=== PATIENT | male | born 1940 | race Caucasian/White ===

== ENCOUNTER → 2018-02-04 | Outpatient (CLI) | payer MEDICARE, OTHER ==
[~2018-02-04] MED LIST: AREDS 2 PO; ASCO500 PO; ASPI325 PO; ASPI325EC; ASPI325EC PO; ASPI500 PO; ATOR40TA PO; CARV6.25 PO; CEPH500 PO; CETI10 PO; CIPR500 PO; CLOP75 PO; CYAN1000 PO; ELIQUIS5 MG PO; FINA5 PO; FISH1000 PO; HYDACE5 PO; LEVSOD100 PO; LEVSOD125 PO; LISI20 PO; NITR.4SL SL; Nitrostat0.4 MG SL; ROSU10TA PO; SPIR25 PO; TAMS.4ER PO; VALS80; VIT1CAPS12; XARELTO20 MG; ZESTORETIC 20-121 EA; ZESTORETIC 20-121 EA PO
== END ==
LOC: PLD 13:26 → LAB SHORT 13:26
DX: D48.5 Neoplasm of uncertain behavior of skin (principal)
CPT/HCPCS: 88305

== ENCOUNTER → 2018-07-23 | Outpatient (CLI) | payer MEDICARE, OTHER ==
[~2018-07-23] MED LIST changes: +LEVSOD50 PO; +VIT1CAPS12 PO; +VITAMIN B122500 MC1 PO; +Vitamin C60 MG PO; +XARELTO20 MG PO
== END | disposition home or self-care (01) ==
LOC: PLD 10:36 → LAB SHORT 10:36
DX: D48.5 Neoplasm of uncertain behavior of skin (principal)
CPT/HCPCS: 88305

== ENCOUNTER → 2021-01-16 | Outpatient (CLI) | payer MEDICARE, OTHER | END | disposition home or self-care (01) | LOC: PLD 11:02 → LAB SHORT 11:02 | DX: D48.5 Neoplasm of uncertain behavior of skin (principal) | CPT/HCPCS: 88305 ==

== ENCOUNTER 2022-10-26 00:23 | Day surgery (SDC) | payer MEDICARE, OTHER | END 2022-10-26 23:31 | disposition home or self-care (01) | LOC: WOUND 00:23 | DX: S61.401A Unspecified open wound of right hand, initial encounter (principal); S51.001A Unspecified open wound of right elbow, initial encounter; S61.402A Unspecified open wound of left hand, initial encounter; S41.102A Unspecified open wound of left upper arm, initial encounter; S12.100A Unspecified displaced fracture of second cervical vertebra, initial encounter for closed fracture; S41.101A Unspecified open wound of right upper arm, initial encounter; R55 Syncope and collapse; I11.0 Hypertensive heart disease with heart failure; I50.9 Heart failure, unspecified; I25.10 Atherosclerotic heart disease of native coronary artery without angina pectoris; I25.2 Old myocardial infarction; Z87.891 Personal history of nicotine dependence | CPT/HCPCS: G0463 ==

== ENCOUNTER 2022-10-29 08:45 | Day surgery (SDC) | payer MEDICARE, OTHER | END 2022-10-29 22:45 | disposition home or self-care (01) | LOC: WOUND 08:45 → ATC 08:45 → WOUND 22:45 | DX: S61.401A Unspecified open wound of right hand, initial encounter (principal); S61.402A Unspecified open wound of left hand, initial encounter; S41.102A Unspecified open wound of left upper arm, initial encounter; S12.100A Unspecified displaced fracture of second cervical vertebra, initial encounter for closed fracture; S41.101A Unspecified open wound of right upper arm, initial encounter; R55 Syncope and collapse | CPT/HCPCS: G0463 ==

== ENCOUNTER 2022-11-05 00:39 | Day surgery (SDC) | payer MEDICARE, OTHER | END 2022-11-05 22:53 | disposition home or self-care (01) | LOC: WOUND 00:39 | DX: S41.102D Unspecified open wound of left upper arm, subsequent encounter (principal); R55 Syncope and collapse; S12.100A Unspecified displaced fracture of second cervical vertebra, initial encounter for closed fracture; S41.101D Unspecified open wound of right upper arm, subsequent encounter; S61.401D Unspecified open wound of right hand, subsequent encounter; S61.402D Unspecified open wound of left hand, subsequent encounter | CPT/HCPCS: G0463 ==

== ENCOUNTER 2022-11-07 04:05 | Day surgery (SDC) | payer MEDICARE, OTHER | END 2022-11-07 23:07 | disposition home or self-care (01) | LOC: WOUND 04:05 | DX: S41.102A Unspecified open wound of left upper arm, initial encounter (principal); S61.402D Unspecified open wound of left hand, subsequent encounter; I10 Essential (primary) hypertension; R55 Syncope and collapse; S12.100A Unspecified displaced fracture of second cervical vertebra, initial encounter for closed fracture; S41.101D Unspecified open wound of right upper arm, subsequent encounter; S61.401D Unspecified open wound of right hand, subsequent encounter | CPT/HCPCS: G0463 ==

== ENCOUNTER 2022-11-09 03:05 | Day surgery (SDC) | payer MEDICARE, OTHER | END 2022-11-09 23:07 | disposition home or self-care (01) | LOC: WOUND 03:05 | DX: S41.102D Unspecified open wound of left upper arm, subsequent encounter (principal); R55 Syncope and collapse; S12.100A Unspecified displaced fracture of second cervical vertebra, initial encounter for closed fracture; S41.101D Unspecified open wound of right upper arm, subsequent encounter; S61.401D Unspecified open wound of right hand, subsequent encounter; S61.402D Unspecified open wound of left hand, subsequent encounter; W10.9XXD Fall (on) (from) unspecified stairs and steps, subsequent encounter | CPT/HCPCS: A9270; G0463 ==

== ENCOUNTER 2022-11-16 02:39 | Day surgery (SDC) | payer MEDICARE, OTHER | END 2022-11-16 23:48 | disposition home or self-care (01) | LOC: WOUND | DX: S41.102A Unspecified open wound of left upper arm, initial encounter (principal); R55 Syncope and collapse; S41.101A Unspecified open wound of right upper arm, initial encounter; S61.401A Unspecified open wound of right hand, initial encounter; S61.402A Unspecified open wound of left hand, initial encounter | CPT/HCPCS: G0463 ==

== ENCOUNTER 2022-11-30 01:38 | Day surgery (SDC) | payer MEDICARE, OTHER ==
[~2022-11-30 01:38] MED LIST changes: +ACET500 PO; +C COMPLEX1000 M1 PO; +ENTRESTO 24 MG1 EAC3 PO; +EZETIMIBE10 M6 PO; +FUROSEMIDE20 MG PO; +LEVSOD137 PO; -LEVSOD50 PO; +MAGNESIUM OXID500 MG PO; +METOPROLOL SUCC25 MG PO; +OXAYDO5 M2 PO; +Oxybutynin Chlo15 MG PO; +PRESERVISION L1 EAC2 PO; +SPIRONOLACTONE25 MG PO; +SULTRIDS PO; +VISBIOME 112.51 EACH PO; -VIT1CAPS12 PO; -Vitamin C60 MG PO
== END 2022-11-30 22:52 | disposition home or self-care (01) ==
LOC: WOUND 01:38
DX: S61.412A Laceration without foreign body of left hand, initial encounter (principal); R55 Syncope and collapse; S51.812A Laceration without foreign body of left forearm, initial encounter
CPT/HCPCS: G0463

== ENCOUNTER 2022-12-07 00:58 | Day surgery (SDC) | payer MEDICARE, OTHER | END 2022-12-08 22:47 | disposition home or self-care (01) | LOC: WOUND 00:58 | DX: S41.102A Unspecified open wound of left upper arm, initial encounter (principal); S61.402A Unspecified open wound of left hand, initial encounter; S51.802A Unspecified open wound of left forearm, initial encounter; R55 Syncope and collapse | CPT/HCPCS: A9270; G0463 ==

== ENCOUNTER 2022-12-14 00:16 | Day surgery (SDC) | payer MEDICARE, OTHER | END 2022-12-14 23:51 | disposition home or self-care (01) | LOC: WOUND 00:16 | DX: S51.812A Laceration without foreign body of left forearm, initial encounter (principal); W10.8XXA Fall (on) (from) other stairs and steps, initial encounter; R55 Syncope and collapse; S12.100A Unspecified displaced fracture of second cervical vertebra, initial encounter for closed fracture; S41.101D Unspecified open wound of right upper arm, subsequent encounter; S61.401D Unspecified open wound of right hand, subsequent encounter; S61.402D Unspecified open wound of left hand, subsequent encounter | CPT/HCPCS: A9270; G0463 ==

== ENCOUNTER 2022-12-28 00:24 | Day surgery (SDC) | payer MEDICARE, OTHER | END 2022-12-28 23:14 | disposition home or self-care (01) | LOC: WOUND 00:24 | DX: S41.102D Unspecified open wound of left upper arm, subsequent encounter (principal); S12.100D Unspecified displaced fracture of second cervical vertebra, subsequent encounter for fracture with routine healing; S41.101D Unspecified open wound of right upper arm, subsequent encounter; S61.401D Unspecified open wound of right hand, subsequent encounter; S61.402D Unspecified open wound of left hand, subsequent encounter; W10.9XXD Fall (on) (from) unspecified stairs and steps, subsequent encounter; R55 Syncope and collapse | CPT/HCPCS: A9270; G0463 ==

== ENCOUNTER 2023-01-18 01:47 | Day surgery (SDC) | payer MEDICARE, OTHER | END 2023-01-18 22:57 | disposition home or self-care (01) | LOC: WOUND 01:47 | DX: S41.102D Unspecified open wound of left upper arm, subsequent encounter (principal); S41.101D Unspecified open wound of right upper arm, subsequent encounter; S61.402D Unspecified open wound of left hand, subsequent encounter; S61.401D Unspecified open wound of right hand, subsequent encounter; S12.100D Unspecified displaced fracture of second cervical vertebra, subsequent encounter for fracture with routine healing; W10.9XXD Fall (on) (from) unspecified stairs and steps, subsequent encounter; R55 Syncope and collapse | CPT/HCPCS: G0463 ==

== ENCOUNTER 2023-02-01 02:08 | Day surgery (SDC) | payer MEDICARE, OTHER | END 2023-02-01 22:48 | disposition home or self-care (01) | LOC: WOUND 02:08 | DX: S51.812A Laceration without foreign body of left forearm, initial encounter (principal); R55 Syncope and collapse | CPT/HCPCS: A9270 ==

== ENCOUNTER 2023-04-07 15:38 | Emergency (ER) | payer MEDICARE, OTHER ==
[~2023-04-07] VITALS: Ht 170.2 cm; Wt 113.4 kg
[2023-04-07 16:19] LABS: BASOPHILS ABSOLUTE AUTO 0.07 K/mm3 (0.00-0.23); BASOPHILS PERCENT AUTO 1 % (0-2); EOSINOPHILS ABSOLUTE AUTO 0.14 K/mm3 (0.00-0.68); EOSINOPHILS PERCENT AUTO 2 % (0-6); Hematocrit 35.5 % (37.0-53.0); Hemoglobin 10.7 g/dL (13.5-17.5); IMMATURE GRAN ABSOLUTE AUTO 0.02 K/mm3 (0.00-0.10); IMMATURE GRAN PERCENT AUTO 0 % (0-1); LYMPHOCYTES ABSOLUTE AUTO 2.01 K/mm3 (0.84-5.20); LYMPHOCYTES PERCENT AUTO 27 % (21-46); MONOCYTES PERCENT AUTO 12 % (4-13); Mean Corpuscular HGB 22.6 pg (26.0-34.0); Mean Corpuscular HGB Conc 30.1 g/dL (31.5-36.5); Mean Corpuscular Volume 75 fL (80-100); Mean Platelet Volume 10.5 fL (9.1-12.4); NEUTROPHILS ABSOLUTE AUTO 4.34 K/mm3 (1.96-9.15); NEUTROPHILS PERCENT AUTO 58 % (41-73); Platelet Count 315 K/mm3 (150-400); RDW Coefficient Variation 22.3 % (11.7-14.2); RDW Standard Deviation 59.8 fL (35.1-46.3); Red Blood Cell Count 4.73 M/mm3 (4.30-5.90); White Blood Cell Count 7.48 K/mm3 (4.00-11.30)
[2023-04-07 16:33] LABS: International Normalized Ratio 1.56
[2023-04-07 16:36] LABS: Albumin, Blood 3.3 g/dL (3.4-5.0); Albumin/Globulin Ratio 0.9 (0.8-1.8); Bilirubin, Total 0.8 mg/dL (0.1-1.0); Bun/Creatinine Ratio 18.8 (12.0-20.0); Calcium, Blood 8.7 mg/dL (8.5-10.1); Creatinine, Blood 1.28 mg/dL (0.60-1.20); Globulin, Blood 3.5 g/dL (2.2-4.0); Magnesium, Blood 2.1 mg/dL (1.6-2.4); Potassium, Blood 3.9 mmol/L (3.5-5.5); Total Protein, Blood 6.8 g/dL (6.4-8.2)
[2023-04-07 18:04] VITALS: BP 124/63
== END 2023-04-07 18:13 | disposition home or self-care (01) ==
LOC: ER 15:38
PROVIDERS: Student in an Organized Health Care Education/Training Program
DX: R55 Syncope and collapse (principal); S01.01XA Laceration without foreign body of scalp, initial encounter; S61.215A Laceration without foreign body of left ring finger without damage to nail, initial encounter; I50.9 Heart failure, unspecified; T45.515A Adverse effect of anticoagulants, initial encounter; Z79.899 Other long term (current) drug therapy; G40.909 Epilepsy, unspecified, not intractable, without status epilepticus; I11.0 Hypertensive heart disease with heart failure; I48.91 Unspecified atrial fibrillation; W18.30XA Fall on same level, unspecified, initial encounter
CPT/HCPCS: 70450; 72125; 80053; 82947; 83735; 83880; 84484; 85025; 85610; 93005; 93010

== ENCOUNTER 2023-05-01 04:43 | Day surgery (SDC) | payer MEDICARE, OTHER | END 2023-05-01 22:44 | disposition home or self-care (01) | LOC: WOUND 04:43 | DX: S51.811D Laceration without foreign body of right forearm, subsequent encounter (principal); S01.00XD Unspecified open wound of scalp, subsequent encounter; S50.311D Abrasion of right elbow, subsequent encounter; S61.215D Laceration without foreign body of left ring finger without damage to nail, subsequent encounter; W10.8XXD Fall (on) (from) other stairs and steps, subsequent encounter | CPT/HCPCS: A9270 ==

== ENCOUNTER 2023-05-08 02:31 | Day surgery (SDC) | payer MEDICARE, OTHER | END 2023-05-08 22:49 | disposition home or self-care (01) | LOC: WOUND 02:31 | DX: S51.811D Laceration without foreign body of right forearm, subsequent encounter (principal); S61.215D Laceration without foreign body of left ring finger without damage to nail, subsequent encounter; S01.00XD Unspecified open wound of scalp, subsequent encounter; S50.311D Abrasion of right elbow, subsequent encounter | CPT/HCPCS: G0463 ==

== ENCOUNTER → 2023-05-13 | Outpatient (CLI) | payer MEDICARE, OTHER ==
[2023-05-13 18:09] LABS: BASOPHILS ABSOLUTE AUTO 0.07 K/mm3 (0.00-0.23); BASOPHILS PERCENT AUTO 1 % (0-2); EOSINOPHILS ABSOLUTE AUTO 0.17 K/mm3 (0.00-0.68); EOSINOPHILS PERCENT AUTO 3 % (0-6); Hematocrit 37.5 % (37.0-53.0); Hemoglobin 11.3 g/dL (13.5-17.5); IMMATURE GRAN ABSOLUTE AUTO 0.02 K/mm3 (0.00-0.10); IMMATURE GRAN PERCENT AUTO 0 % (0-1); LYMPHOCYTES ABSOLUTE AUTO 1.36 K/mm3 (0.84-5.20); LYMPHOCYTES PERCENT AUTO 22 % (21-46); MONOCYTES ABSOLUTE AUTO 0.82 K/mm3 (0.16-1.47); MONOCYTES PERCENT AUTO 13 % (4-13); Mean Corpuscular HGB 22.9 pg (26.0-34.0); Mean Corpuscular HGB Conc 30.1 g/dL (31.5-36.5); Mean Corpuscular Volume 76 fL (80-100); Mean Platelet Volume 10.6 fL (9.1-12.4); NEUTROPHILS ABSOLUTE AUTO 3.88 K/mm3 (1.96-9.15); NEUTROPHILS PERCENT AUTO 61 % (41-73); Platelet Count 296 K/mm3 (150-400); RDW Coefficient Variation 21.3 % (11.7-14.2); RDW Standard Deviation 58.4 fL (35.1-46.3); Red Blood Cell Count 4.93 M/mm3 (4.30-5.90); White Blood Cell Count 6.32 K/mm3 (4.00-11.30)
[2023-05-14 08:11] LABS: IRON BIND.CAP.(TIBC) 424 ug/dL (250-450); IRON SATURATION 7 % (15-55); IRON, SERUM 30 ug/dL (38-169); UIBC 394 ug/dL (111-343)
[2023-05-14 23:08] LABS: FERRITIN 20 ng/mL (30-400)
== END | disposition home or self-care (01) ==
LOC: LAB SHORT 16:55
PROVIDERS: Nurse Practitioner Family
DX: D64.9 Anemia, unspecified (principal)
CPT/HCPCS: 82728; 83540; 83550; 85025

== ENCOUNTER 2023-05-29 02:12 | Day surgery (SDC) | payer MEDICARE, OTHER | END 2023-05-29 22:51 | disposition home or self-care (01) | LOC: WOUND 02:12 | DX: S51.811D Laceration without foreign body of right forearm, subsequent encounter (principal); S61.215D Laceration without foreign body of left ring finger without damage to nail, subsequent encounter; S01.00XD Unspecified open wound of scalp, subsequent encounter; S50.311D Abrasion of right elbow, subsequent encounter; W10.9XXD Fall (on) (from) unspecified stairs and steps, subsequent encounter | CPT/HCPCS: G0463 ==

== ENCOUNTER → 2023-07-17 | Outpatient (CLI) | payer MEDICARE, OTHER | LOC: LAB 08:50 → LAB SHORT 08:50 | DX: E53.8 Deficiency of other specified B group vitamins (principal) | CPT/HCPCS: 82607; 82746 ==

== ENCOUNTER → 2023-11-20 | Outpatient (CLI) | payer MEDICARE, OTHER ==
[2023-11-20 15:59] LABS: BASOPHILS ABSOLUTE AUTO 0.06 K/mm3 (0.00-0.23); BASOPHILS PERCENT AUTO 1 % (0-2); EOSINOPHILS ABSOLUTE AUTO 0.12 K/mm3 (0.00-0.68); EOSINOPHILS PERCENT AUTO 2 % (0-6); Hematocrit 42.7 % (37.0-53.0); Hemoglobin 14.8 g/dL (13.5-17.5); IMMATURE GRAN ABSOLUTE AUTO 0.02 K/mm3 (0.00-0.10); IMMATURE GRAN PERCENT AUTO 0 % (0-1); LYMPHOCYTES ABSOLUTE AUTO 1.18 K/mm3 (0.84-5.20); LYMPHOCYTES PERCENT AUTO 20 % (21-46); MONOCYTES ABSOLUTE AUTO 0.62 K/mm3 (0.16-1.47); MONOCYTES PERCENT AUTO 11 % (4-13); Mean Corpuscular HGB 34.6 pg (26.0-34.0); Mean Corpuscular HGB Conc 34.7 g/dL (31.5-36.5); Mean Corpuscular Volume 100 fL (80-100); Mean Platelet Volume 11.3 fL (9.1-12.4); NEUTROPHILS ABSOLUTE AUTO 3.87 K/mm3 (1.96-9.15); NEUTROPHILS PERCENT AUTO 66 % (41-73); Platelet Count 230 K/mm3 (150-400); RDW Coefficient Variation 14.2 % (11.7-14.2); RDW Standard Deviation 51.7 fL (35.1-46.3); Red Blood Cell Count 4.28 M/mm3 (4.30-5.90); White Blood Cell Count 5.87 K/mm3 (4.00-11.30)
[2023-11-20 16:08] LABS: Free Thyroxine 0.72 ng/dL (0.70-1.60)
[2023-11-20 16:29] LABS: Percent Saturation 44.3 % (20.0-50.0); Thyroid Stimulating Hormone 10.3 uIU/mL (0.360-4.800)
[2023-11-21 09:11] LABS: A/G RATIO 1.7 (1.2-2.2); BILIRUBIN, TOTAL 0.9 mg/dL (0.0-1.2); CALCIUM, SERUM 9.2 mg/dL (8.6-10.2); CREATININE, SERUM 1.12 mg/dL (0.76-1.27); GLOBULIN, TOTAL 2.4 g/dL (1.5-4.5); POTASSIUM, SERUM 4.4 mmol/L (3.5-5.2); PROTEIN, TOTAL, SERUM 6.5 g/dL (6.0-8.5)
== END ==
LOC: LAB 11:45 → LAB SHORT 11:45
PROVIDERS: Nurse Practitioner Family
DX: E03.9 Hypothyroidism, unspecified (principal); D50.9 Iron deficiency anemia, unspecified
CPT/HCPCS: 80053; 82728; 83540; 83550; 84439; 84443; 85025

== ENCOUNTER → 2023-12-18 | Outpatient (CLI) | payer MEDICARE, OTHER ==
[2023-12-18 12:16] LABS: BASOPHILS ABSOLUTE AUTO 0.05 K/mm3 (0.00-0.23); BASOPHILS PERCENT AUTO 1 % (0-2); EOSINOPHILS ABSOLUTE AUTO 0.03 K/mm3 (0.00-0.68); EOSINOPHILS PERCENT AUTO 0 % (0-6); Hematocrit 43.2 % (37.0-53.0); Hemoglobin 13.8 g/dL (13.5-17.5); IMMATURE GRAN ABSOLUTE AUTO 0.03 K/mm3 (0.00-0.10); IMMATURE GRAN PERCENT AUTO 0 % (0-1); LYMPHOCYTES PERCENT AUTO 10 % (21-46); MONOCYTES ABSOLUTE AUTO 0.87 K/mm3 (0.16-1.47); MONOCYTES PERCENT AUTO 9 % (4-13); Mean Corpuscular HGB 31.9 pg (26.0-34.0); Mean Corpuscular HGB Conc 31.9 g/dL (31.5-36.5); Mean Corpuscular Volume 100 fL (80-100); Mean Platelet Volume 9.4 fL (9.1-12.4); NEUTROPHILS ABSOLUTE AUTO 7.76 K/mm3 (1.96-9.15); NEUTROPHILS PERCENT AUTO 80 % (41-73); Platelet Count 259 K/mm3 (150-400); RDW Coefficient Variation 13.9 % (11.7-14.2); RDW Standard Deviation 51.4 fL (35.1-46.3); Red Blood Cell Count 4.32 M/mm3 (4.30-5.90); White Blood Cell Count 9.74 K/mm3 (4.00-11.30)
[2023-12-18 13:23] LABS: Albumin, Blood 3.5 g/dL (3.4-5.0); Albumin/Globulin Ratio 0.9 (0.8-1.8); Bun/Creatinine Ratio 20.2 (12.0-20.0); Calcium, Blood 9.2 mg/dL (8.5-10.1); Creatinine, Blood 0.94 mg/dL (0.60-1.20); Globulin, Blood 3.8 g/dL (2.2-4.0); Potassium, Blood 4.2 mmol/L (3.5-5.5); Total Protein, Blood 7.3 g/dL (6.4-8.2)
== END | disposition home or self-care (01) ==
LOC: LAB SHORT 12:12
PROVIDERS: Physician Assistant
DX: I51.7 Cardiomegaly (principal)
CPT/HCPCS: 80053; 83880; 85025

== ENCOUNTER → 2024-08-19 | Outpatient (CLI) | payer MEDICARE, OTHER | LOC: LAB 16:31 → LAB SHORT 16:31 | DX: R30.0 Dysuria (principal) | CPT/HCPCS: 87086 ==

== ENCOUNTER → 2024-09-16 | Outpatient (CLI) | payer MEDICARE, OTHER ==
[2024-09-16 17:38] LABS: BASOPHILS ABSOLUTE AUTO 0.06 K/mm3 (0.00-0.23); BASOPHILS PERCENT AUTO 1 % (0-2); EOSINOPHILS ABSOLUTE AUTO 0.17 K/mm3 (0.00-0.68); EOSINOPHILS PERCENT AUTO 3 % (0-6); Hematocrit 45.5 % (37.0-53.0); Hemoglobin 14.9 g/dL (13.5-17.5); IMMATURE GRAN ABSOLUTE AUTO 0.02 K/mm3 (0.00-0.10); IMMATURE GRAN PERCENT AUTO 0 % (0-1); LYMPHOCYTES ABSOLUTE AUTO 1.58 K/mm3 (0.84-5.20); LYMPHOCYTES PERCENT AUTO 26 % (21-46); MONOCYTES ABSOLUTE AUTO 0.78 K/mm3 (0.16-1.47); MONOCYTES PERCENT AUTO 13 % (4-13); Mean Corpuscular HGB 31.4 pg (26.0-34.0); Mean Corpuscular HGB Conc 32.7 g/dL (31.5-36.5); Mean Corpuscular Volume 96 fL (80-100); Mean Platelet Volume 10.8 fL (9.1-12.4); NEUTROPHILS ABSOLUTE AUTO 3.37 K/mm3 (1.96-9.15); NEUTROPHILS PERCENT AUTO 57 % (41-73); Platelet Count 216 K/mm3 (150-400); RDW Coefficient Variation 14.6 % (11.7-14.2); Red Blood Cell Count 4.74 M/mm3 (4.30-5.90); White Blood Cell Count 5.98 K/mm3 (4.00-11.30)
[2024-09-16 18:00] LABS: Albumin, Blood 3.4 g/dL (3.4-5.0); Bun/Creatinine Ratio 20.5 (12.0-20.0); Calcium, Blood 8.7 mg/dL (8.5-10.1); Creatinine, Blood 0.98 mg/dL (0.60-1.20); Globulin, Blood 3.5 g/dL (2.2-4.0); Percent Saturation 25.4 % (20.0-50.0); Potassium, Blood 4.1 mmol/L (3.5-5.5); Thyroid Stimulating Hormone 3.02 uIU/mL (0.360-4.800); Total Protein, Blood 6.9 g/dL (6.4-8.2)
== END ==
LOC: LAB 16:15 → LAB SHORT 16:15
PROVIDERS: Nurse Practitioner Family
DX: R53.83 Other fatigue (principal); D50.9 Iron deficiency anemia, unspecified
CPT/HCPCS: 80053; 82728; 83540; 83550; 84443; 85025; 87086

== ENCOUNTER 2025-02-08 05:48 | Day surgery (SDC) | payer MEDICARE, OTHER ==
[2025-02-08] VITALS (13 sets, daily range): BP systolic 91–112; BP diastolic 56–73
[2025-02-08] MEDS ORDERED: POTCHL20ER PO (06:30)
[2025-02-08] MEDS ORDERED: LOSA25 PO (06:30)
[2025-02-08] MEDS ORDERED: Sanctura20 MG PO (06:31)
[2025-02-08] MEDS ORDERED: NS 1,000 ML IV ONE (06:46)
--- NOTE | 2025-02-08 07:05 | NUR ---
ASSUMED CARE FROM ANESTHESIA. PT AWAKE AND VERBALIZING WELL.
--- NOTE | 2025-02-08 07:46 | NUR ---
PT AND FAMILY VERBALIZED UNDERSTANDING OF WRITTEN AND VERBAL D/C INST. AFIB 50-60BPM ON D/C. IV REMOVED. PT TAKEN OUT OF THE HRT CENTER VIA W/C.
== END 2025-02-08 23:20 | disposition home or self-care (01) ==
LOC: MHTC 05:48
DX: I48.11 Longstanding persistent atrial fibrillation (principal); I25.5 Ischemic cardiomyopathy; I25.810 Atherosclerosis of coronary artery bypass graft(s) without angina pectoris; I10 Essential (primary) hypertension; E78.5 Hyperlipidemia, unspecified; E03.9 Hypothyroidism, unspecified; Z79.899 Other long term (current) drug therapy; Z87.891 Personal history of nicotine dependence; Z95.1 Presence of aortocoronary bypass graft
CPT/HCPCS: 92960; 93005; 93010; J7030

== ENCOUNTER 2025-07-28 22:14 | Emergency (ER) | payer MEDICARE, OTHER ==
[~2025-07-28] VITALS: Ht 170.2 cm; Wt 116.6 kg
[~2025-07-28 22:14] MED LIST changes: +LOSA25 PO; +POTCHL20ER PO; +Sanctura20 MG PO
[2025-07-28 22:50] VITALS: BP 107/70
[2025-07-29] MEDS ORDERED: CEPH500 PO (00:41)
== END 2025-07-29 00:43 | disposition home or self-care (01) ==
LOC: ER 22:14
DX: M79.81 Nontraumatic hematoma of soft tissue (principal); I10 Essential (primary) hypertension; E78.00 Pure hypercholesterolemia, unspecified; Z95.1 Presence of aortocoronary bypass graft; Z79.899 Other long term (current) drug therapy; Z79.01 Long term (current) use of anticoagulants
CPT/HCPCS: 93971; 99283-25; A9270

== ENCOUNTER 2025-07-30 18:37 | Inpatient (IN) | payer MEDICARE, OTHER ==
[~2025-07-30] VITALS: Ht 170.2 cm; Wt 118.0 kg
[2025-07-30 19:18] LABS: BASOPHILS ABSOLUTE AUTO 0.07 K/mm3 (0.00-0.23); BASOPHILS PERCENT AUTO 1 % (0-2); EOSINOPHILS ABSOLUTE AUTO 0.15 K/mm3 (0.00-0.68); EOSINOPHILS PERCENT AUTO 2 % (0-6); Hematocrit 40.8 % (37.0-53.0); Hemoglobin 13.1 g/dL (13.5-17.5); IMMATURE GRAN ABSOLUTE AUTO 0.02 K/mm3 (0.00-0.10); IMMATURE GRAN PERCENT AUTO 0 % (0-1); LYMPHOCYTES ABSOLUTE AUTO 1.60 K/mm3 (0.84-5.20); LYMPHOCYTES PERCENT AUTO 19 % (21-46); MONOCYTES ABSOLUTE AUTO 0.98 K/mm3 (0.16-1.47); MONOCYTES PERCENT AUTO 12 % (4-13); Mean Corpuscular HGB Conc 32.1 g/dL (31.5-36.5); Mean Corpuscular Volume 99 fL (80-100); NEUTROPHILS ABSOLUTE AUTO 5.63 K/mm3 (1.96-9.15); NEUTROPHILS PERCENT AUTO 67 % (41-73); NRBC ABSOLUTE 0.00 K/mm3 (0.00-0.02); NRBC Auto 0.0 /100 WBC (0.0-0.2); Platelet Count 246 K/mm3 (150-400); RDW Coefficient Variation 14.6 % (11.7-14.2); RDW Standard Deviation 53.1 fL (35.1-46.3)
[2025-07-30 19:40] LABS: C-REACTIVE PROTEIN, EXT RANGE 1.04 mg/dL (0.000-0.300)
[2025-07-30 19:42] LABS: Alanine Aminotransfer (ALT/SGP 54.0 U/L (12-78); Albumin, Blood 3.2 g/dL (3.4-5.0); Albumin/Globulin Ratio 0.8 (0.8-1.8); Anion Gap 6.0 mmol/L (3-11); Aspartate Aminotrans (AST/SGOT 11.0 U/L (12-37); Bilirubin, Total 0.9 mg/dL (0.1-1.0); Blood Urea Nitrogen 24.0 mg/dL (8-24); CO2, Blood 36.0 mmol/L (21-32); Calcium, Blood 8.9 mg/dL (8.5-10.1); Chloride, Blood 98.0 mmol/L (98-108); Creatinine, Blood 1.37 mg/dL (0.60-1.20); Globulin, Blood 3.9 g/dL (2.2-4.0); Glucose, Blood 90.0 mg/dL (70-99); Potassium, Blood 3.7 mmol/L (3.5-5.5); Sodium, Blood 136.0 mmol/L (136-145); Total Protein, Blood 7.1 g/dL (6.4-8.2)
[2025-07-30] MEDS ORDERED: Vancomycin (Pharmacy Consult) IV PRN (22:25)
[2025-07-30] MEDS ORDERED: NS 1,000 ML IV SCH (22:55)
[2025-07-30] MEDS ORDERED: Ondansetron HCl 2 MG / ML 2ML Vial IV PRN (23:15)
[2025-07-30] MEDS ORDERED: FLU VACC TS2025(65UP)/MF59C/PF 45 MCG/0.5 ML SYRINGE IM SCH (23:20)
[2025-07-30] MEDS ORDERED: Vancomycin (Pharmacy Consult) IV SCH (23:20)
[2025-07-31 00:27] VITALS: BP 108/77
[2025-07-31] MEDS ORDERED: TRAM50 PO (00:44)
[2025-07-31 03:42] VITALS: BP 100/62
--- NOTE | 2025-07-31 05:14 | NUR ---
SHIFT SUMMARY; AFTER ADMIT. PATIENTS FAMILY STAYED OVER. MRSA SWAB COLLECTED AND SENT TO LAB RT CAME AND REVIEWED HIS CPAP MACHINE. NO TELE. BLE RAISED ABOVE HIS HEART
[2025-07-31 06:27] LABS: BASOPHILS ABSOLUTE AUTO 0.03 K/mm3 (0.00-0.23); BASOPHILS PERCENT AUTO 0 % (0-2); EOSINOPHILS ABSOLUTE AUTO 0.12 K/mm3 (0.00-0.68); EOSINOPHILS PERCENT AUTO 2 % (0-6); Hematocrit 36.7 % (37.0-53.0); Hemoglobin 11.9 g/dL (13.5-17.5); IMMATURE GRAN ABSOLUTE AUTO 0.02 K/mm3 (0.00-0.10); IMMATURE GRAN PERCENT AUTO 0 % (0-1); LYMPHOCYTES ABSOLUTE AUTO 1.35 K/mm3 (0.84-5.20); LYMPHOCYTES PERCENT AUTO 19 % (21-46); MONOCYTES ABSOLUTE AUTO 0.93 K/mm3 (0.16-1.47); MONOCYTES PERCENT AUTO 13 % (4-13); Mean Corpuscular HGB Conc 32.4 g/dL (31.5-36.5); Mean Corpuscular Volume 98 fL (80-100); NEUTROPHILS ABSOLUTE AUTO 4.52 K/mm3 (1.96-9.15); NEUTROPHILS PERCENT AUTO 65 % (41-73); NRBC ABSOLUTE 0.00 K/mm3 (0.00-0.02); NRBC Auto 0.0 /100 WBC (0.0-0.2); Platelet Count 216 K/mm3 (150-400); RDW Coefficient Variation 14.7 % (11.7-14.2); RDW Standard Deviation 53.1 fL (35.1-46.3)
[2025-07-31 07:02] LABS: Alanine Aminotransfer (ALT/SGP 42.0 U/L (12-78); Albumin, Blood 2.8 g/dL (3.4-5.0); Albumin/Globulin Ratio 0.9 (0.8-1.8); Anion Gap 5.0 mmol/L (3-11); Aspartate Aminotrans (AST/SGOT 12.0 U/L (12-37); Bilirubin, Total 0.7 mg/dL (0.1-1.0); Blood Urea Nitrogen 24.0 mg/dL (8-24); CO2, Blood 34.0 mmol/L (21-32); Calcium, Blood 8.6 mg/dL (8.5-10.1); Chloride, Blood 102.0 mmol/L (98-108); Creatinine, Blood 1.09 mg/dL (0.60-1.20); Globulin, Blood 3.1 g/dL (2.2-4.0); Glucose, Blood 89.0 mg/dL (70-99); Magnesium, Blood 2.2 mg/dL (1.6-2.4); Potassium, Blood 3.8 mmol/L (3.5-5.5); Sodium, Blood 137.0 mmol/L (136-145); Total Protein, Blood 5.9 g/dL (6.4-8.2)
[2025-07-31 07:08] VITALS: BP 101/60
[2025-07-31] MEDS ORDERED: TORSE20 PO (08:29)
[2025-07-31] MEDS ORDERED: FARXIGA10 MG PO (08:29)
[2025-07-31] MEDS ORDERED: VITAMIN D3 PO (08:31)
[2025-07-31] MEDS ORDERED: K-TAB ER20 ME1 PO (08:35)
[2025-07-31] MEDS ORDERED: PRESERVISION A1 EAC1 PO (08:37)
[2025-07-31] MEDS ORDERED: Enoxaparin 40 MG/0.4 ML SYR SC SCH (09:00)
[2025-07-31] MEDS ORDERED: Lactobacil 2-S.Thermo-Bifido 1 1 Cap PO SCH (09:00)
[2025-07-31] MEDS ORDERED: Torsemide 20 MG TAB PO SCH (13:00)
[2025-07-31] MEDS ORDERED: ABILIFY MYCITE20 M2 PO (14:01)
[2025-07-31] MEDS ORDERED: SOAANZ60 M1 PO (14:05)
[2025-07-31 14:40] VITALS: BP 104/62
--- NOTE | 2025-07-31 18:20 | NUR ---
END OF SHIFT FAMILY AT BEDSIDE TODAY. MED REC DONE. LLE VERY SWOLLEN AND PAINFUL TODAY. ELEVATED MOTS OF THE DAY. PATIENT IND WITH FWW TO BATHROOM, NEEDS SOME ASSISTANCE WITH BED BUTTONS. A&OX4.
[2025-07-31 19:18] VITALS: BP 110/63
[2025-07-31] MEDS ORDERED: PRESERVISION PO SCH (21:00)
[2025-07-31] MEDS ORDERED: NS 250 ML IV PRN (22:50)
[2025-08-01 04:20] VITALS: BP 115/82
[2025-08-01 06:18] LABS: Anion Gap 6.0 mmol/L (3-11); Blood Urea Nitrogen 21.0 mg/dL (8-24); CO2, Blood 33.0 mmol/L (21-32); Calcium, Blood 8.8 mg/dL (8.5-10.1); Chloride, Blood 100.0 mmol/L (98-108); Creatinine, Blood 1.23 mg/dL (0.60-1.20); Glucose, Blood 98.0 mg/dL (70-99); Potassium, Blood 3.2 mmol/L (3.5-5.5); Sodium, Blood 136.0 mmol/L (136-145)
--- NOTE | 2025-08-01 06:18 | NUR ---
SHIFT SUMMARY CELLULITIS WITH BLISTER TO LEFT FOOT REMAINS UNCHANGED. IV ANTBIOTIC GIVEN PER ORDER. PT MEDICATED FOR PAIN X1 WITH TRAMADOL PER EMAR. PT UP INDEPENDENTLY IN ROOM, WITH AND WITHOUT WALKER. PT SLEPT INTERMITTENTLY DURING THE NIGHT.
[2025-08-01 07:13] VITALS: BP 124/82
[2025-08-01] MEDS ORDERED: CefTRIAXone Sodium 1,000 MG in NS 100 ML IV SCH (12:31)
[2025-08-01 15:22] VITALS: BP 94/55
--- NOTE | 2025-08-01 18:51 | NUR ---
SUMMARY- PT A/O X4, UP TO BATHROOM WITH WALKER, SBA. TOLERATES ACTIVITY WELL. L FOOT CELLULITIS RED/SWOLLEN/WARM WITH INTACT WATER BLISTER ON TOP, NOT EXTENDING OUT OF ORIGIONAL LINE. PT ELEVATES LEG CONTINUALLY WHEN NOT AMBULTING. SAT UP IN RECLINER MOST OF THE DAY. FAMILY IN MOST OF THE DAY, SUPPORTIVE IN CARE. PAIN CONTROLLED WITH TRAMADOL PRN. PT IS DIURESING. TO TOLERATING FOOD AND FLUIDS. REPORTED OFF TO ZOË LEON RN
[2025-08-01 19:35] VITALS: BP 102/55
[2025-08-02 04:16] VITALS: BP 108/55
--- NOTE | 2025-08-02 05:34 | NUR ---
SHIFT SUMMARY CELLULITIS/ SWELLING REMAINS TO LLE. BLISTER IS INTACT TO TOP OF LEFT FOOT, BUT AREA AROUND THE BLISTER APPEARS MORE RED THIS EARLY AM. PT INDEPENDENT IN ROOM WITH WALKER, AND KEEPS HIS LEG ELEVATED WHEN HE IS NOT WALKING. PT HAS DENIES THE NEED FOR PAIN MEDICATION THIS SHIFT. PT USED CPAP AT HS, OTHERWISE IS ON ROOM AIR. SLEPT INTERMITTENTLY DURING THE NIGHT.
[2025-08-02 06:00] LABS: BASOPHILS ABSOLUTE AUTO 0.05 K/mm3 (0.00-0.23); BASOPHILS PERCENT AUTO 1 % (0-2); EOSINOPHILS ABSOLUTE AUTO 0.18 K/mm3 (0.00-0.68); EOSINOPHILS PERCENT AUTO 3 % (0-6); Hematocrit 36.4 % (37.0-53.0); Hemoglobin 11.8 g/dL (13.5-17.5); IMMATURE GRAN ABSOLUTE AUTO 0.02 K/mm3 (0.00-0.10); IMMATURE GRAN PERCENT AUTO 0 % (0-1); LYMPHOCYTES ABSOLUTE AUTO 1.15 K/mm3 (0.84-5.20); LYMPHOCYTES PERCENT AUTO 16 % (21-46); MONOCYTES ABSOLUTE AUTO 1.09 K/mm3 (0.16-1.47); MONOCYTES PERCENT AUTO 15 % (4-13); Mean Corpuscular HGB Conc 32.4 g/dL (31.5-36.5); Mean Corpuscular Volume 96 fL (80-100); NEUTROPHILS ABSOLUTE AUTO 4.63 K/mm3 (1.96-9.15); NEUTROPHILS PERCENT AUTO 65 % (41-73); NRBC ABSOLUTE 0.00 K/mm3 (0.00-0.02); NRBC Auto 0.0 /100 WBC (0.0-0.2); Platelet Count 212 K/mm3 (150-400); RDW Coefficient Variation 14.5 % (11.7-14.2); RDW Standard Deviation 51.1 fL (35.1-46.3)
[2025-08-02 06:14] LABS: Anion Gap 6.0 mmol/L (3-11); Blood Urea Nitrogen 21.0 mg/dL (8-24); CO2, Blood 36.0 mmol/L (21-32); Calcium, Blood 9.0 mg/dL (8.5-10.1); Chloride, Blood 97.0 mmol/L (98-108); Creatinine, Blood 1.31 mg/dL (0.60-1.20); Glucose, Blood 111.0 mg/dL (70-99); Potassium, Blood 3.1 mmol/L (3.5-5.5); Sodium, Blood 136.0 mmol/L (136-145)
[2025-08-02 07:35] VITALS: BP 107/63
[2025-08-02 15:38] VITALS: BP 105/62
--- NOTE | 2025-08-02 17:14 | NUR ---
SHIFT SUMMARY PT A&OX4, VSS, RA, NON-TELE, IND IN ROOM. SWELLING IN LLE SLIGHTLY IMPROVED PER MD, REDNESS REMAINS, BLISTER WHEEPING SCANT AMOUND OF SEROUS DRAINAGE, MD AWARE. IV ROCEPHEN CONT. IV BUMEX CONT. PT ELEVATES LEGS MOST OF DAY, MEDICATED FOR PAIN X1 EFFECTIVE. PT PLEASANT AND COOPERATIVE WITH CARE, CALL LIGHT IN REACH.
[2025-08-02 19:38] VITALS: BP 99/58
[2025-08-03 02:06] VITALS: BP 104/64
--- NOTE | 2025-08-03 05:33 | NUR ---
SSHIFT SUMMARY NO ACUTE EVENTS DURING THIS SHIFT. PT IS A/OX4, ABLE TO MAKE HIS NEEDS KNOWN AND COOPERATIVE WITH CARE. FLUID FILLED LARGE BLISTER ON TOP OF THE LEFT FOOT. +3 EDEMA LLE, +2 ON RLE.BED AT THE LOWEST POSITION, CALL LIGHT W/I REACH. MEDICATED EMAR FOR RESTLESS LEGS, AND LLE PAIN.
[2025-08-03 06:30] LABS: Anion Gap 7.0 mmol/L (3-11); Blood Urea Nitrogen 22.0 mg/dL (8-24); CO2, Blood 35.0 mmol/L (21-32); Calcium, Blood 8.8 mg/dL (8.5-10.1); Chloride, Blood 93.0 mmol/L (98-108); Creatinine, Blood 1.14 mg/dL (0.60-1.20); Glucose, Blood 104.0 mg/dL (70-99); Potassium, Blood 2.4 mmol/L (3.5-5.5); Sodium, Blood 133.0 mmol/L (136-145)
--- NOTE | 2025-08-03 06:33 | NUR ---
@[id number] CRITICAL LAB VALUE OF POTASSIUM 2.4 RECEIVED FROM [facility]. THIS STRAIGHTEDGE MACHINE OPERATOR HELPER CONTACTED THE ON-CALL HOSPITALIST DR. GARCIA. NEW T-ORDER FOR KCl 40 IV X1 RECEIVED AND ENTERED WIO Bambisa, SEE EMAR.
[2025-08-03] MEDS ORDERED: NS 250 ML IV PRN (06:50)
[2025-08-03 07:28] VITALS: BP 114/61
[2025-08-03 15:41] VITALS: BP 134/75
--- NOTE | 2025-08-03 18:18 | NUR ---
SHIFT SUMMARY PT A&OX4, VSS, RA, NON-TELE, IND IN ROOM. [facility]+ [facility] WAS 2.4, IV POTASSIUM GIVEN RIGHT AFTER SHIFT CHANGE. CELLULITIS TO LLE AND BLISTER ON L FOOT WHEEPING, GENTLY CLEANSED FOOT WITH GAUZE AND SALINE, PLACED NON-ADHERENT GAUZE OVER BLISTER AND WRAPPED LOOSLY IN KERLIX. WHAT APPEARS TO BE SMALL BLISTERS BLE TO CALF NOTED, DERMATOLOGY CONSULTED. MD CONCERNED ABNORMAL SKIN CONDITION COULD BE A REACTION TO CEFTRIAXONE. PT DID NOT COMPLAIN OF PAIN THIS SHIFT. PLEASANT AND COOPERATIVE WITH CARE, CALL LIGHT IN REACH.
[2025-08-03 19:35] VITALS: BP 106/63
--- NOTE | 2025-08-04 04:19 | NUR ---
SHIFT SUMMARY PATIENT HAD NO ACUTE CHANGES. ALERT ORIENTED AND INDEPENDENT IN ROOM. SITTING IN CHAIR START OF SHIFT. DENIES CHEST PAIN, SOB, AND N/V. VSS/AFEBRILE. PIV INTACT. REPORTED RESTLESS LEGS AND SCHEDULE REQUIP GIVEN. REPORTED LEFT LEG PAIN AND TRAMADOL 50 MG GIVEN PER EMAR. USES CPAP AT NIGHT. CALL LIGHT IN REACH. BED IN LOWEST POSITION. WILL CONTINUE TO MONITOR UNTIL DAY SHIFT NURSE ASSUMES CARE.
[2025-08-04 04:49] VITALS: BP 114/85
[2025-08-04 05:46] LABS: BASOPHILS ABSOLUTE AUTO 0.06 K/mm3 (0.00-0.23); BASOPHILS PERCENT AUTO 1 % (0-2); EOSINOPHILS ABSOLUTE AUTO 0.08 K/mm3 (0.00-0.68); EOSINOPHILS PERCENT AUTO 1 % (0-6); Hematocrit 38.8 % (37.0-53.0); Hemoglobin 12.9 g/dL (13.5-17.5); IMMATURE GRAN ABSOLUTE AUTO 0.02 K/mm3 (0.00-0.10); IMMATURE GRAN PERCENT AUTO 0 % (0-1); LYMPHOCYTES ABSOLUTE AUTO 1.37 K/mm3 (0.84-5.20); LYMPHOCYTES PERCENT AUTO 16 % (21-46); MONOCYTES ABSOLUTE AUTO 1.35 K/mm3 (0.16-1.47); MONOCYTES PERCENT AUTO 16 % (4-13); Mean Corpuscular HGB Conc 33.2 g/dL (31.5-36.5); Mean Corpuscular Volume 96 fL (80-100); NEUTROPHILS ABSOLUTE AUTO 5.66 K/mm3 (1.96-9.15); NEUTROPHILS PERCENT AUTO 66 % (41-73); NRBC ABSOLUTE 0.00 K/mm3 (0.00-0.02); NRBC Auto 0.0 /100 WBC (0.0-0.2); Platelet Count 261 K/mm3 (150-400); RDW Coefficient Variation 14.4 % (11.7-14.2); RDW Standard Deviation 50.2 fL (35.1-46.3)
[2025-08-04 06:18] LABS: Anion Gap 5.0 mmol/L (3-11); Blood Urea Nitrogen 26.0 mg/dL (8-24); CO2, Blood 38.0 mmol/L (21-32); Calcium, Blood 9.3 mg/dL (8.5-10.1); Chloride, Blood 93.0 mmol/L (98-108); Creatinine, Blood 1.14 mg/dL (0.60-1.20); Glucose, Blood 100.0 mg/dL (70-99); Potassium, Blood 2.9 mmol/L (3.5-5.5); Sodium, Blood 133.0 mmol/L (136-145)
[2025-08-04 07:26] VITALS: BP 127/78
[2025-08-04 15:38] VITALS: BP 128/88
--- NOTE | 2025-08-04 17:15 | NUR ---
End of shift summary: Patient is alert and oriented x4; pleasant and cooperative with care. Patient has been up in chair throughout the day and elevating legs d/t edema. Patient with new dressing to left foot d/t cellulitus and blister. Denies pain, SOB, CP, N/V/D this shift. All medications administered per EMAR. Patient utilizing call light appropriately; call light within reach and bed in lowest position. Will continue to monitor until next shift nurse arrives and report is given.
[2025-08-04 19:52] VITALS: BP 134/83
--- NOTE | 2025-08-05 04:03 | NUR ---
SHIFT SUMMARY: PT IS AOX4 AND IND IN ROOM. PTS BROTHER AT BEDSIDE THROUGHOUT THE SHIFT. PT SLEPT THE WHOLE SHIFT. NO ACUTE CHANGES THIS SHIFT.
[2025-08-05 04:14] VITALS: BP 105/69
[2025-08-05 05:01] LABS: BASOPHILS ABSOLUTE AUTO 0.05 K/mm3 (0.00-0.23); BASOPHILS PERCENT AUTO 1 % (0-2); EOSINOPHILS ABSOLUTE AUTO 0.05 K/mm3 (0.00-0.68); EOSINOPHILS PERCENT AUTO 1 % (0-6); Hematocrit 40.0 % (37.0-53.0); Hemoglobin 12.9 g/dL (13.5-17.5); IMMATURE GRAN ABSOLUTE AUTO 0.03 K/mm3 (0.00-0.10); IMMATURE GRAN PERCENT AUTO 0 % (0-1); LYMPHOCYTES ABSOLUTE AUTO 1.11 K/mm3 (0.84-5.20); LYMPHOCYTES PERCENT AUTO 12 % (21-46); MONOCYTES ABSOLUTE AUTO 1.34 K/mm3 (0.16-1.47); MONOCYTES PERCENT AUTO 15 % (4-13); Mean Corpuscular HGB Conc 32.3 g/dL (31.5-36.5); Mean Corpuscular Volume 97 fL (80-100); NEUTROPHILS ABSOLUTE AUTO 6.40 K/mm3 (1.96-9.15); NEUTROPHILS PERCENT AUTO 71 % (41-73); NRBC ABSOLUTE 0.00 K/mm3 (0.00-0.02); NRBC Auto 0.0 /100 WBC (0.0-0.2); Platelet Count 263 K/mm3 (150-400); RDW Coefficient Variation 14.2 % (11.7-14.2); RDW Standard Deviation 50.5 fL (35.1-46.3)
[2025-08-05 05:29] LABS: Anion Gap 8.0 mmol/L (3-11); Blood Urea Nitrogen 30.0 mg/dL (8-24); CO2, Blood 37.0 mmol/L (21-32); Calcium, Blood 9.3 mg/dL (8.5-10.1); Chloride, Blood 90.0 mmol/L (98-108); Creatinine, Blood 1.26 mg/dL (0.60-1.20); Glucose, Blood 105.0 mg/dL (70-99); Potassium, Blood 2.8 mmol/L (3.5-5.5); Sodium, Blood 132.0 mmol/L (136-145)
[2025-08-05 07:24] VITALS: BP 117/72
[2025-08-05 15:39] VITALS: BP 115/80
[2025-08-05] MEDS ORDERED: Potassium Chl 20MEQ/Water100ML 100 ML IV SCH (16:00)
--- NOTE | 2025-08-05 18:02 | NUR ---
END OF SHIFT SUMMARY: PATIENT IS ALERT AND ORIENTED X4; PLEASANT AND COOPERATIVE. PATIENT WITH CONTINUED EDEMA AND PAIN TO LLE AND IS ELEVATING THROUGHOUT THE DAY. PATIENT DENIES SOB, CP, N/V/D AT THIS TIME. PATIENT WITH K+ 2.8 AND IV KCL ORDERED AND RUNNING. ALL MEDICATIONS ADMINISTERED PER EMAR. PATIENT UTILIZING CALL LIGHT APPROPRIATELY; CALL LIGHT WITHIN REACH AND BED IN LOWEST POSITION. WILL CONTINUE TO MONITOR UNTIL NEXT SHIFT NURSE ARRIVES AND REPORT IS GIVEN.
[2025-08-05 20:32] VITALS: BP 106/61
[2025-08-05] MEDS ORDERED: NS 500 ML IV SCH (23:00)
--- NOTE | 2025-08-05 23:07 | NUR ---
PROVIDER CALLED: 2ND BAG OF POTASSIUM CHLORIDE FINISHED. POTASSIUM CAME BACK FROM 2.8 TO NOW 3.4. NOTIFIED OF LAB VAUED AND OKAYED BAG 3 OUT OF 3 TO BE HUNG. TALIB PLACED ON PT.
[2025-08-05 23:20] VITALS: BP 111/72
--- NOTE | 2025-08-06 04:00 | NUR ---
SHIFT SUMMARY: PT IS AOX4 AND IND IN ROOM. PT HAD THREE BAGS OF POTASSIUM THIS SHIFT. PT MEDICATED PER EMANehal MAYERS IN PLACE.
[2025-08-06 04:02] VITALS: BP 104/75
[2025-08-06 05:16] LABS: Anion Gap 9.0 mmol/L (3-11); Blood Urea Nitrogen 37.0 mg/dL (8-24); CO2, Blood 34.0 mmol/L (21-32); Calcium, Blood 9.2 mg/dL (8.5-10.1); Chloride, Blood 93.0 mmol/L (98-108); Creatinine, Blood 1.37 mg/dL (0.60-1.20); Glucose, Blood 114.0 mg/dL (70-99); Potassium, Blood 3.3 mmol/L (3.5-5.5); Sodium, Blood 133.0 mmol/L (136-145)
[2025-08-06 07:31] VITALS: BP 116/70
[2025-08-06 09:46] VITALS: BP 118/72
[2025-08-06] MEDS ORDERED: SPIR25 PO (14:08)
[2025-08-06] MEDS ORDERED: VISBIOME 112.51 EACH PO (14:08)
[2025-08-06] MEDS ORDERED: LEVE500 PO (14:10)
[2025-08-06] MEDS ORDERED: ROPI.25 PO (14:15)
[2025-08-06] MEDS ORDERED: LEVOFLOXACIN PO (14:33)
--- NOTE | 2025-08-06 14:56 | NUR ---
DISCHARGE NOTE- PT AND FAMILY WERE PROVIDED WITH VERBAL AND WRITTEN DISCHARGE INSTRUCTIONS AND ACKNOWLEDGED UNDERSTANDING OF THEM. MEDS WERE FAXED TO [email or web address] AT THE FAMILY'S REQUEST. PT IV AND TELE DC'D BY THE [employer] PRIOR TO DISCHARGE. PT ON ROOM AIR. PT ESCORTED OUT VIA WC BY THE [employer] NO S&S OF DISTRESS NOTED AT THE TIME OF DISCHARGE. DRESSING CHANGED PRIOR TO DISCHARGE.
== END 2025-08-06 14:55 | disposition home or self-care (01) | DRG 872 ==
LOC: ER 18:37 → MEDS 23:14 → ENPENDDIS 08-06 14:20 → MEDS 08-06 14:55
PROVIDERS: Emergency Medicine; Internal Medicine; Student in an Organized Health Care Education/Training Program; ADMIT Student in an Organized Health Care Education/Training Program
DX: A41.9 Sepsis, unspecified organism (principal); E87.21 Acute metabolic acidosis; I50.22 Chronic systolic (congestive) heart failure; L03.116 Cellulitis of left lower limb; Z68.41 Body mass index [BMI] 40.0-44.9, adult; I13.0 Hypertensive heart and chronic kidney disease with heart failure and stage 1 through stage 4 chronic kidney disease, or unspecified chronic kidney disease; I48.91 Unspecified atrial fibrillation; R65.20 Severe sepsis without septic shock; N18.9 Chronic kidney disease, unspecified; E87.6 Hypokalemia; I25.10 Atherosclerotic heart disease of native coronary artery without angina pectoris; E66.9 Obesity, unspecified; E78.00 Pure hypercholesterolemia, unspecified; G25.81 Restless legs syndrome; R22.42 Localized swelling, mass and lump, left lower limb; E03.9 Hypothyroidism, unspecified; Z95.1 Presence of aortocoronary bypass graft; N40.0 Benign prostatic hyperplasia without lower urinary tract symptoms; Z79.899 Other long term (current) drug therapy; Z79.890 Hormone replacement therapy; Z79.01 Long term (current) use of anticoagulants; Z87.891 Personal history of nicotine dependence; Z98.890 Other specified postprocedural states
CPT/HCPCS: 36415; 73630; 73701; 80048; 80053; 83605; 83735; 84132; 85025; 86140; 87040; 87070; 87205; 93971; 99283-25; 99285-25; A9270; J0696; J1650; J1956; J3373; J3480; J7030; J7040; J7050; Q9967

== ENCOUNTER 2025-08-25 00:50 | Day surgery (SDC) | payer MEDICARE, OTHER ==
[~2025-08-25 00:50] MED LIST changes: +ABILIFY MYCITE20 M2 PO; +FARXIGA10 MG PO; +K-TAB ER20 ME1 PO; +LEVE500 PO; +LEVOFLOXACIN PO; +PRESERVISION A1 EAC1 PO; +ROPI.25 PO; +SOAANZ60 M1 PO; +TORSE20 PO; +TRAM50 PO; +VITAMIN D3 PO
[2025-08-25] MEDS ORDERED: Lidocaine HCl 4% Cream 5 GM ONE (13:58)
== END 2025-08-25 23:00 | disposition home or self-care (01) ==
LOC: WOUND 00:50
DX: L02.612 Cutaneous abscess of left foot (principal); I87.2 Venous insufficiency (chronic) (peripheral); I73.9 Peripheral vascular disease, unspecified; I48.0 Paroxysmal atrial fibrillation; I25.10 Atherosclerotic heart disease of native coronary artery without angina pectoris; I25.2 Old myocardial infarction; I11.0 Hypertensive heart disease with heart failure; I50.9 Heart failure, unspecified; E78.5 Hyperlipidemia, unspecified; E03.9 Hypothyroidism, unspecified; N40.0 Benign prostatic hyperplasia without lower urinary tract symptoms; Z86.73 Personal history of transient ischemic attack (TIA), and cerebral infarction without residual deficits; Z87.891 Personal history of nicotine dependence
CPT/HCPCS: A6213; A9270; G0463

== ENCOUNTER 2025-09-01 01:31 | Day surgery (SDC) | payer MEDICARE, OTHER ==
[2025-09-01] MEDS ORDERED: Lidocaine HCl 4% Cream 5 GM ONE (11:18)
== END 2025-09-01 23:00 | disposition home or self-care (01) ==
LOC: WOUND 01:31
DX: L97.522 Non-pressure chronic ulcer of other part of left foot with fat layer exposed (principal); R60.0 Localized edema; L03.116 Cellulitis of left lower limb; I87.2 Venous insufficiency (chronic) (peripheral); I73.9 Peripheral vascular disease, unspecified
CPT/HCPCS: A6213; A9270

== ENCOUNTER → 2025-09-08 | Outpatient (CLI) | payer MEDICARE, OTHER | LOC: LAB 16:42 | DX: I13.0 Hypertensive heart and chronic kidney disease with heart failure and stage 1 through stage 4 chronic kidney disease, or unspecified chronic kidney disease (principal); N18.31 Chronic kidney disease, stage 3a; E03.9 Hypothyroidism, unspecified ==

== ENCOUNTER 2025-09-14 13:33 | Emergency (ER) | payer MEDICARE, OTHER ==
[~2025-09-14] VITALS: Ht 170.2 cm; Wt 113.0 kg
[2025-09-14 14:04] VITALS: BP 126/82
== END 2025-09-14 15:11 | disposition home or self-care (01) ==
LOC: ER 13:33
DX: S51.812A Laceration without foreign body of left forearm, initial encounter (principal); S51.811A Laceration without foreign body of right forearm, initial encounter; S80.211A Abrasion, right knee, initial encounter; S09.90XA Unspecified injury of head, initial encounter; W01.0XXA Fall on same level from slipping, tripping and stumbling without subsequent striking against object, initial encounter; I25.10 Atherosclerotic heart disease of native coronary artery without angina pectoris; I10 Essential (primary) hypertension; E78.5 Hyperlipidemia, unspecified; E03.9 Hypothyroidism, unspecified; Z79.01 Long term (current) use of anticoagulants; Z95.1 Presence of aortocoronary bypass graft; Z87.891 Personal history of nicotine dependence
CPT/HCPCS: 70450; 99284-25

== ENCOUNTER 2025-09-22 01:08 | Day surgery (SDC) | payer MEDICARE, OTHER | END 2025-09-22 23:00 | disposition home or self-care (01) | LOC: WOUND 01:08 | DX: L97.522 Non-pressure chronic ulcer of other part of left foot with fat layer exposed (principal); S51.811A Laceration without foreign body of right forearm, initial encounter; S51.812A Laceration without foreign body of left forearm, initial encounter; L03.116 Cellulitis of left lower limb; R60.0 Localized edema; I87.2 Venous insufficiency (chronic) (peripheral); I73.9 Peripheral vascular disease, unspecified; M25.532 Pain in left wrist; M79.602 Pain in left arm; X58.XXXA Exposure to other specified factors, initial encounter | CPT/HCPCS: 73110; A6213; G0463 ==

== ENCOUNTER 2025-09-22 14:58 | Emergency (ER) | payer MEDICARE, OTHER ==
[~2025-09-22] VITALS: Ht 170.2 cm; Wt 113.4 kg
[2025-09-22 15:35] LABS: BASOPHILS ABSOLUTE AUTO 0.06 K/mm3 (0.00-0.23); BASOPHILS PERCENT AUTO 1 % (0-2); EOSINOPHILS ABSOLUTE AUTO 0.08 K/mm3 (0.00-0.68); EOSINOPHILS PERCENT AUTO 1 % (0-6); Hematocrit 42.3 % (37.0-53.0); Hemoglobin 13.4 g/dL (13.5-17.5); IMMATURE GRAN ABSOLUTE AUTO 0.03 K/mm3 (0.00-0.10); IMMATURE GRAN PERCENT AUTO 0 % (0-1); LYMPHOCYTES ABSOLUTE AUTO 1.93 K/mm3 (0.84-5.20); LYMPHOCYTES PERCENT AUTO 24 % (21-46); MONOCYTES ABSOLUTE AUTO 1.10 K/mm3 (0.16-1.47); MONOCYTES PERCENT AUTO 13 % (4-13); Mean Corpuscular HGB Conc 31.7 g/dL (31.5-36.5); Mean Corpuscular Volume 96 fL (80-100); NEUTROPHILS ABSOLUTE AUTO 5.02 K/mm3 (1.96-9.15); NEUTROPHILS PERCENT AUTO 61 % (41-73); NRBC ABSOLUTE 0.00 K/mm3 (0.00-0.02); NRBC Auto 0.0 /100 WBC (0.0-0.2); Platelet Count 262 K/mm3 (150-400); RDW Coefficient Variation 14.6 % (11.7-14.2); RDW Standard Deviation 51.8 fL (35.1-46.3)
[2025-09-22 15:54] LABS: Alanine Aminotransfer (ALT/SGP 34.0 U/L (12-78); Albumin, Blood 3.3 g/dL (3.4-5.0); Albumin/Globulin Ratio 0.9 (0.8-1.8); Anion Gap 7.0 mmol/L (3-11); Aspartate Aminotrans (AST/SGOT 10.0 U/L (12-37); Bilirubin, Total 1.1 mg/dL (0.1-1.0); Blood Urea Nitrogen 26.0 mg/dL (8-24); CO2, Blood 33.0 mmol/L (21-32); Calcium, Blood 9.3 mg/dL (8.5-10.1); Chloride, Blood 100.0 mmol/L (98-108); Creatinine, Blood 1.12 mg/dL (0.60-1.20); Globulin, Blood 3.7 g/dL (2.2-4.0); Glucose, Blood 93.0 mg/dL (70-99); Potassium, Blood 3.9 mmol/L (3.5-5.5); Sodium, Blood 136.0 mmol/L (136-145); Total Protein, Blood 7.0 g/dL (6.4-8.2)
[2025-09-22 20:30] VITALS: BP 138/76
== END 2025-09-23 20:56 | disposition home or self-care (01) ==
LOC: ER 14:58
PROVIDERS: Student in an Organized Health Care Education/Training Program
DX: S51.812D Laceration without foreign body of left forearm, subsequent encounter (principal); M79.89 Other specified soft tissue disorders; I10 Essential (primary) hypertension; E78.5 Hyperlipidemia, unspecified; E03.9 Hypothyroidism, unspecified; W18.30XD Fall on same level, unspecified, subsequent encounter; Z87.891 Personal history of nicotine dependence; Z79.899 Other long term (current) drug therapy
CPT/HCPCS: 73201; 80053; 83605; 85025; 85651; 86140; 99284-25; Q9967

== ENCOUNTER 2025-09-29 00:22 | Day surgery (SDC) | payer MEDICARE, OTHER ==
[2025-09-29] MEDS ORDERED: Lidocaine HCl 4% Cream 5 GM ONE ×2 (10:47→11:05)
== END 2025-09-29 23:31 | disposition home or self-care (01) ==
LOC: WOUND 00:22
DX: L97.522 Non-pressure chronic ulcer of other part of left foot with fat layer exposed (principal); S51.811A Laceration without foreign body of right forearm, initial encounter; S51.812A Laceration without foreign body of left forearm, initial encounter; L03.116 Cellulitis of left lower limb; R60.0 Localized edema; I87.2 Venous insufficiency (chronic) (peripheral); I73.9 Peripheral vascular disease, unspecified; M25.532 Pain in left wrist; M79.602 Pain in left arm; W19.XXXA Unspecified fall, initial encounter
CPT/HCPCS: A6213; A9270; G0463

== ENCOUNTER 2025-10-06 00:19 | Day surgery (SDC) | payer MEDICARE, OTHER ==
[2025-10-06] MEDS ORDERED: Lidocaine HCl 4% Cream 5 GM ONE (10:17)
== END 2025-10-06 23:00 | disposition home or self-care (01) ==
LOC: WOUND 00:19
DX: L02.612 Cutaneous abscess of left foot (principal); S51.811D Laceration without foreign body of right forearm, subsequent encounter; S51.812D Laceration without foreign body of left forearm, subsequent encounter; X58.XXXD Exposure to other specified factors, subsequent encounter; I73.9 Peripheral vascular disease, unspecified; I87.2 Venous insufficiency (chronic) (peripheral)
CPT/HCPCS: A9270; G0463

== ENCOUNTER 2025-10-27 08:02 | Day surgery (SDC) | payer MEDICARE, OTHER | END 2025-10-27 23:00 | disposition home or self-care (01) | LOC: WOUND 08:02 | DX: L97.522 Non-pressure chronic ulcer of other part of left foot with fat layer exposed (principal); S51.811D Laceration without foreign body of right forearm, subsequent encounter; S51.812D Laceration without foreign body of left forearm, subsequent encounter; L03.116 Cellulitis of left lower limb; R60.0 Localized edema; I87.2 Venous insufficiency (chronic) (peripheral); I73.9 Peripheral vascular disease, unspecified; M25.532 Pain in left wrist; M79.602 Pain in left arm; G47.30 Sleep apnea, unspecified; I11.0 Hypertensive heart disease with heart failure; I50.9 Heart failure, unspecified; I25.10 Atherosclerotic heart disease of native coronary artery without angina pectoris; I25.2 Old myocardial infarction; E07.9 Disorder of thyroid, unspecified; M19.90 Unspecified osteoarthritis, unspecified site; X58.XXXD Exposure to other specified factors, subsequent encounter; Z79.84 Long term (current) use of oral hypoglycemic drugs; Z79.890 Hormone replacement therapy; Z79.899 Other long term (current) drug therapy; Z87.828 Personal history of other (healed) physical injury and trauma | CPT/HCPCS: G0463 ==